=== PATIENT | female | born 1975 | race Caucasian/White ===

== ENCOUNTER → 2020-02-13 10:01 | Outpatient (CLI) | payer OTHER, SELFPAY ==
[2020-02-13 11:03] LABS: COVID19 -Nasal RAPID Negative (Negative)
== END ==
PROVIDERS: Family Provider Internal Medicine; PCP Internal Medicine; Referring Provider Internal Medicine; Visit Provider Internal Medicine
DX: Z20.822 Contact with and (suspected) exposure to COVID-19 (principal)
CPT/HCPCS: 87635; C9803

== ENCOUNTER → 2020-02-14 08:46 | Outpatient (CLI) | payer OTHER, SELFPAY ==
--- NOTE | 2020-02-22 10:52 | P.PFT.S_ITS ---
Pulmonary Function Test Referral & Results Date Patient Seen: 02/14/20 Requesting provider: Krys Harrington Indication: Asthma Results: The spirometry demonstrates an FVC of 3.78 L which is 85% of predicted. The FEV1 was measured at 2.98 L which is 83% of predicted. The FEV1/FVC ratio was 79 which is 96% of predicted. Following the administration of bronchodilator there was a 34% improvement in FEF 25-75%. Lung volumes show an SVC of 3.95 L which is 98% of predicted. The diffusing capacity was measured at 23.89 which is 73% of predicted. No hemoglobin value was provided, so no correction for potential anemia could be made, if appropriate. The maximum voluntary ventilation was normal Interpretation: This study demonstrates perhaps mild obstructive lung disease based on reduction FEV1 and shape a flow volume loop. There is evidence of very limited benefit following bronchodilator particularly small airway flow as above based on impr ovement in FEF 25-75% Lung volumes are normal, and diffusing capacity is borderline minimally reduced (unless patient is anemic). Clinical correlation suggested
== END ==
PROVIDERS: Family Provider Internal Medicine; Referring Provider Family Medicine; Visit Provider Family Medicine
DX: J45.20 Mild intermittent asthma, uncomplicated (principal); Z87.891 Personal history of nicotine dependence
CPT/HCPCS: 94060; 94726; 94729

== ENCOUNTER 2023-04-27 11:52 | Emergency (ER) | payer OTHER, SELFPAY ==
[2023-04-27] VITALS (10 sets, daily range): BP systolic 120–168; BP diastolic 77–88; PULSE 59–81; RESP 13–19; TEMP 36.6; O2SAT 97–99; BMI 27.9
--- NOTE | 2023-04-27 12:10 | DI.RAD.S_ITS ---
PROCEDURE: XR TIBIA FIBULA LT 2V INDICATIONS: injury TECHNIQUE: 2 views of the tibia and fibula were acquired. COMPARISON: None. FINDINGS: Bones: No fractures or dislocations. No suspicious bony lesions. Midfoot orthopedic hardware noted. Soft tissues: No suspicious soft tissue calcifications or masses. IMPRESSION: Unremarkable tibia and fibula films. Dictated by: Nahid Lara M.D. on 04/27/2023 at 13:15 Approved by: Nahid Lara M.D. on 04/27/2023 at 13:16
--- NOTE | 2023-04-27 12:10 | DI.US.S_ITS ---
PROCEDURE: US PERIPH VENOUS LOW EXTREM LT INDICATIONS: PAIN AND SWELLING TECHNIQUE: Real-time imaging, as well as color and pulse Doppler interrogation, were performed of the lower extremity deep veins from the inguinal ligament to the popliteal fossa, with documentation of the visualized calf veins. COMPARISON: None. FINDINGS: Intraluminal filling defects are noted in left popliteal vein and posterior tibial vein. Left peroneal veins are not well seen. Above-mentioned veins show all absence of flow and are noncompressible. IMPRESSION: Occlusive venous thrombosis in left popliteal vein and posterior tibial vein. Dictated by: Raman Mcfadden M.D. on 04/27/2023 at 13:14 Approved by: Raman Mcfadden M.D. on 04/27/2023 at 13:16
[2023-04-27 12:41] LABS: Bacteria Urine Moderate (10-30); Culture Indicated Urine Specimen Cultured; RBC Urine None Seen (0-5/HPF); Squamous Epithelial Cell Urine 1-5 /HPF (0-5/HPF); Urine Volume 10mL (spun); WBC Urine 0-1/HPF (0-5/HPF)
--- NOTE | 2023-04-27 12:41 | PC.NURSE ---
History of PE on eloquis
[2023-04-27 12:52] LABS: Add Manual Diff / Slide Review NO; Basophils Absolute Auto 100 /uL (0-100); Basophils Percent Auto 0.9 % (0-2); Eosinophils Absolute Auto 200 /uL (0-450); Eosinophils Percent Auto 3.2 % (2-4); Hematocrit 34.6 % (36-46); Hemoglobin 11.6 g/dL (12.0-16.0); Lymphocytes Absolute Auto 1800 /uL (1100-4500); Mean Corpuscular HGB Conc 33.4 % (30-36); Mean Corpuscular Hemoglobin 29.1 PG (26-34); Monocytes Absolute Auto 400 /uL (0-900); Neutrophils Absolute Auto 3400 /uL (1500-7000); Neutrophils Percent Auto 57.9 % (50-75); Platelet Count 300 X10^3/uL (150-400); Red Blood Cell Count 3.98 X10^6/uL (4.0-5.2); White Blood Cell Count 5.9 X10^3/uL (4.5-11.0)
[2023-04-27 12:54] LABS: INR 1.1 (0.9-1.3); Prothrombin Time 12.4 SECONDS (9.4-12.5)
[2023-04-27 12:58] LABS: Alanine Aminotransferase 16 IU/L (<35); Albumin 3.8 g/dL (3.5-5.0); Albumin Globulin Ratio 1.2 (1.0-2.8); Alkaline Phosphatase 86 U/L (38-126); Aspartate Aminotransferase 23 IU/L (14-36); BUN Creatinine Ratio 19.5 (6-22); Bilirubin Total 0.4 mg/dL (0.2-1.3); Blood Urea Nitrogen 15 mg/dL (7-17); Carbon Dioxide 27 mmol/L (22-32); Chloride 109 mmol/L (98-107); Estimated Glomerular Filt Rate > 60 mL/min (>60); Globulin 3.3 g/dL (1.7-4.1); Glucose 120 mg/dL (70-100); HEMOLYSIS < 15 (0-50); Potassium 3.9 mmol/L (3.4-5.1); Sodium 137 mmol/L (137-145); Total Protein 7.1 g/dL (6.3-8.2)
[2023-04-27 12:59] LABS: Lactate (Lactic Acid) 0.8 mmol/L (0.7-2.1)
[2023-04-27 13:03] LABS: D Dimer 2115 ng/ml (<500)
[2023-04-27 13:10] LABS: NT-proBNP (BNP-Adult 18+) 440 pg/mL (<125); Troponin I < 0.012 ng/mL (0.01-0.034)
--- NOTE | 2023-04-27 13:43 | ED.GENADULT ---
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 She is on Eliquis but notes that she does miss a few doses here and there. She fell about 3 weeks ago injured the left minaya with a small contusion to that area noticed increasing pain and then swelling to the left leg and comes in for further evaluation. She notes that she has been chronically dyspneic since her original pulmonary embolism but the last couple of days she has had increased exertional dyspnea. She had a low-grade headache this morning that responded well to Tylenol and ibuprofen. She has not had any palpitations, abdominal pain, diaphoresis, nausea or vomiting Related Data Home Medications Medication Instructions Recorded Confirmed apixaban 5 mg tablet (Eliquis) 2.5 mg PO BID 07/15/19 04/27/23 Previous Rx's Medication Instructions Recorded sumatriptan succinate 50 mg tablet 50 mg PO ONCE #10 tabs 07/15/19 apixaban 5 mg tablet (Eliquis) 5 mg PO BID #180 tabs 04/27/23 Allergies Allergy/AdvReac Type Severity Reaction Status Date / Time Amoxicillin Allergy Severe ANAPHYLAXIS Uncoded 04/27/23 12:05 Penicillin Allergy Severe ANAPHYLAXIS Uncoded 04/27/23 12:05 Aspirin Allergy Mild RASH & Uncoded 04/27/23 12:05 HIVES BEE,HONEY Allergy Unknown Uncoded 04/27/23 12:05 CAT DANDER Allergy Unknown Uncoded 04/27/23 12:05 CHESTNUT Allergy Unknown Uncoded 04/27/23 12:05 GRASS Allergy Unknown Uncoded 04/27/23 12:05 PISTACHIO Allergy Unknown Uncoded 04/27/23 12:05 Review of Systems Review of Systems Narrative: Pertinent positive and negative findings as per HPI Patient History Medical History (Updated 04/27/23 @ 14:33 by Belkis Akbar MD) Generalized anxiety disorder DVT, recurrent, lower extremity, acute Pulmonary embolism Fractures (2010) Fibroids (2004) Asthma (1986) Hayfever (1986) DVT (deep venous thrombosis) (2010) Surgical History (Updated 08/18/17 @ 12:32 by Kassidy Martínez) Anesthesia Status post bunionectomy (03/2014) Status post myomectomy (2006) Family History (Updated 08/18/17 @ 12:32 by Kassidy Martínez) Grandmother Cervical cancer Mental health problem Alzheimer's dementia Grandmother Stroke Social History Smoking Status: Former smoker Smoking Status: Former smoker alcohol intake frequency: other Substance Use Type: does not use Exam Initial Vital Signs Initial Vital Signs: Vital Signs Temperature 98 F 04/27/23 12:00 Pulse Rate 81 04/27/23 12:00 Respiratory Rate 18 04/27/23 12:00 Blood Pressure 168/86 H 04/27/23 12:00 Pulse Oximetry 97 04/27/23 12:00 Oxygen Delivery Method Room Air 04/27/23 12:00 General: Healthy appearing, in no acute distress. Able to give a complete and coherent history. Well-nourished well-developed HEENT: Moist mucous membranes, normal sclera with reactive pupils, Respiratory: Lungs are clear to auscultation, no wheezing no rales no rhonchi. Full and symmetrical air movement Cardiac: Regular rate and rhythm no murmurs no bruits Abdomen: Soft, nontender, good bowel tones, no flank pain Skin: Warm and dry, no rashes Neurologic: Grossly neurologically intact with no obvious asymmetries or abnormalities Extremities: She has an almost completely healed contusion to the left anterior minaya. Left calf is more swollen than the right calf with a positive Homans sign. She is neurovascularly intact. Psych: Cooperative, appropriate insight and affect Course Orders Ordered: ED Orders 04/27/23 12:10 US periph venous low extrem lt Stat XR tibia fibula LT 2V Stat 04/27/23 12:11 EKG-12 Lead Stat Measure peak expiratory flow ONCE RT Consult Eval and Treat NOW 04/27/23 12:20 Urine Culture Stat Urine Microscopic Stat 04/27/23 12:36 Complete Blood Count AUTO DIFF Stat Comprehensive Metabolic Panel Stat D Dimer Stat Lactate (Lactic Acid) Stat NT-proBNP (BNP-Adult 18+) Stat Prothrombin Time INR Stat Troponin I Stat Vital Signs Vital signs: Vital Signs - 8 hr 04/27/23 12:00 04/27/23 12:37 04/27/23 13:00 Temperature 98 F Pulse Rate 81 69 74 Respiratory Rate 18 Blood Pressure 168/86 H Pulse Oximetry 97 99 98 Oxygen Delivery Method Room Air 04/27/23 13:30 04/27/23 13:31 04/27/23 13:31 Temperature Pulse Rate 64 63 Respiratory Rate Blood Pressure 120/77 Pulse Oximetry 98 98 Oxygen Delivery Method Medical Decision Making Lab Data 04/27/23 12:36 04/27/23 12:36 Labs: Lab Results 04/27/23 04/27/23 Range/Units 12:20 12:36 WBC 5.9 (4.5-11.0) X10^3/uL RBC 3.98 L (4.0-5.2) X10^6/uL Hgb 11.6 L (12.0-16.0) g/dL Hct 34.6 L (36-46) % MCV 87.0 (80-100) fL MCH 29.1 (26-34) PG MCHC 33.4 (30-36) % RDW 16.0 H (11.6-14.8) % Plt Count 300 (150-400) X10^3/uL Neut % (Auto) 57.9 (50-75) % Lymph % (Auto) 31.0 (25-40) % [place] % (Auto) 7.0 (3-14) % Eos % (Auto) 3.2 (2-4) % Baso % (Auto) 0.9 (0-2) % Neut # (Auto) 3400 (3942-6381) /uL Lymph # (Auto) 1800 (6127-7817) /uL [place] # (Auto) 400 (0-900) /uL Eos # (Auto) 200 (0-450) /uL Baso # (Auto) 100 (0-100) /uL PT 12.4 (9.4-12.5) SECONDS INR 1.1 (0.9-1.3) D-Dimer 2115 H (<500) ng/ml Sodium 137 (137-145) mmol/L Potassium 3.9 (3.4-5.1) mmol/L Chloride 109 H (98-107) mmol/L Carbon Dioxide 27 (22-32) mmol/L BUN 15 (7-17) mg/dL Creatinine 0.77 (0.52-1.04) mg/dL Estimated GFR > 60 (>60) mL/min BUN/Creatinine Ratio 19.5 (6-22) Glucose 120 H (70-100) mg/dL Lactate 0.8 (0.7-2.1) mmol/L Calcium 9.0 (8.4-10.2) mg/dL Total Bilirubin 0.4 (0.2-1.3) mg/dL AST 23 (14-36) IU/L ALT 16 (<35) IU/L Alkaline Phosphatase 86 (38-126) U/L Troponin I < 0.012 (0.01-0.034) ng/mL NT-Pro-B Natriuret Pep 440 H (<125) pg/mL Total Protein 7.1 (6.3-8.2) g/dL Albumin 3.8 (3.5-5.0) g/dL Globulin 3.3 (1.7-4.1) g/dL Albumin/Globulin Ratio 1.2 (1.0-2.8) Urine RBC None seen (0-5/HPF) Urine WBC 0-1/hpf (0-5/HPF) Ur Squamous Epith Cells 1-5 /hpf (0-5/HPF) Urine Bacteria Moderate (10-30) H (None) Ur Culture Indicated? Specimen cultured Vol Urine Centrifuged 10ml (spun) Point of Care Testing Test Results Negative Urine Dip Bedside Urine Glucose Negative Bedside Urine Bilirubin - Negative Bedside Urine Ketone - Negative Urine Specific [place] 1.005 Bedside Urine Occult Blood + Bedside Urine pH 6.0 Bedside Urine Protein - Negative Bedside Urine Urobilinogen - Negative Bedside Urine Nitrite - Negative Bedside Urine Leukocytes +/- 15 Esterase Point of care testing: Point of Care Testing Test Results Negative Urine Dip Bedside Urine Glucose Negative Bedside Urine Bilirubin - Negative Bedside Urine Ketone - Negative Urine Specific [place] 1.005 Bedside Urine Occult Blood + Bedside Urine pH 6.0 Bedside Urine Protein - Negative Bedside Urine Urobilinogen - Negative Bedside Urine Nitrite - Negative Bedside Urine Leukocytes +/- 15 Esterase MDM Narrative Medical decision making narrative: CC: Leg pain, exertional dyspnea Complicating co-morbidities: Clotting disorder with prior DVT/PE, she is currently on Eliquis but not taking regularly Data collected from: patient Medical records reviewed: Most recent medical records for review from [facility] are from July of 2019. It does look like she gets the majority of her care at [facility]. Differential considered: Recurrent DVT, PE, secondary to known clotting disorder and not appropriately taking Eliquis versus failed Eliquis Exam documented above, pertinent findings include: Quite comfortable, she has not hypoxic nor tachypneic at rest. Left calf is somewhat more swollen with a almost resolved anterior minaya bruise from the original injury 3 weeks ago Lab Test results independently reviewed as above. Pertinent findings: CBC shows no leukocytosis. Mild anemia at 11.6 and 34.6. Appropriate platelets Chemistries are reassuring with normal renal function ProBNP is minimally elevated at 440 Urinalysis indicates bacteria but no white cells or red cells. Independently reviewed EKG: EKG is notable for sinus rhythm at a rate of 74, she does have a PAC, normal intervals, normal axis. No suggestion of right heart strain Imaging studies independently reviewed: Ultrasound shows DVT in the left popliteal and posterior tibial veins. No DVT above the knee Discussion: 48-year-old woman with known clotting disorder presents with new DVT. On further questioning she lost her primary team of physicians, she has been having very significant menometrorrhagia that is made worse by her Eliquis so she tends to not take it while she is menstruating. We did talk about the possibility of an ablation as solution to that knowing that she is heading into menopause years of bleeding may get worse. Talked about the importance of finding a primary care physician with whom she feels comfortable. Going to restart her Eliquis at 5 mg twice a day, that may be able to be decreased to 2.5 mg b.i.d. for prophylactic dosing after 3 months but we will need to be discussed with her primary care doctor. Knowing that she is not having severe symptomatic pulmonary embolism today and will be treated for pulmonary embolism with the Eliquis with shared decision-making we opted to not do a PE study today. Discussed pain medication, she declined any narcotic prescriptions I did stress to her that she should not be taking nonsteroidals with the anticoagulant. Multiple questions were answered, at this point she is stable and is safe for discharge Discharge Plan Departure Patient Disposition: Home Clinical Impression: Anemia, Menometrorrhagia DVT, recurrent, lower extremity, acute Qualifiers: Laterality: left Qualified Code(s): I82.402 - Acute embolism and thrombosis of unspecified deep veins of left lower extremity Instructions: DI for Deep Vein Thrombosis Activity Restrictions/Additional Instructions: Thank you for coming in today You do have a recurrent clot in your lower leg. The clot does not go above your knee. You do need to be on your Eliquis full-time. For at least 3 months you need to be at 5 mg twice a day. After 3 months you may be able to go back to prophylactic dosing at 2.5 mg twice a day but need to talk your primary doctor. You need a primary doctor. Please begin calling around, it is going to take a number of months to find an open space. It is okay to continue looking to find a doctor with whom you feel comfortable. Please restart iron, you are still anemic When you establish a primary care physician, you may want to consider discussing uterine ablation to reduce your menstrual bleeding and hopefully some of your cramping. For pain, unfortunately limited to Tylenol. Ibuprofen will make bleeding worse while on the Eliquis If you are having worsening symptoms particularly shortness of breath palpitations or new findings please return to the ER Prescriptions: New Eliquis 5 mg tablet 5 mg PO BID Qty: 180 3RF No Action Eliquis 5 mg tablet 2.5 mg PO BID sumatriptan succinate 50 mg tablet 50 mg PO ONCE Qty: 10 3RF Stand Alone Forms: Patient Portal/API
== END 2023-04-27 14:45 | disposition home or self-care (01) ==
PROVIDERS: Emergency Provider Emergency Medicine; Family Provider Internal Medicine
DX: I82.402 Acute embolism and thrombosis of unspecified deep veins of left lower extremity (principal); D64.9 Anemia, unspecified; N92.1 Excessive and frequent menstruation with irregular cycle; R06.00 Dyspnea, unspecified; R51.9 Headache, unspecified; Z79.01 Long term (current) use of anticoagulants
CPT/HCPCS: 36415; 73590; 80053; 81003; 81015; 81025; 83605; 83880; 84484; 85025; 85379; 85610; 87086; 93005; 93971; 99283; 99284

== ENCOUNTER → 2024-12-04 13:20 | Outpatient (CLI) | payer OTHER, SELFPAY ==
[2024-12-04 14:06] LABS: Add Manual Diff / Slide Review NO; Hematocrit 33.7 % (36-46); Hemoglobin 10.9 g/dL (12.0-16.0); Lymphocytes Absolute Auto 2500 /uL (1100-4500); Mean Corpuscular HGB Conc 32.4 % (30-36); Mean Corpuscular Hemoglobin 25.7 PG (26-34); Mean Corpuscular Volume 79.4 fL (80-100); Platelet Count 354 X10^3/uL (150-400)
[2024-12-04 14:45] LABS: HEMOLYSIS < 15 (0-50); Iron 49 ug/dL (37-170)
[2024-12-04 14:47] LABS: Alanine Aminotransferase 15 IU/L (<35); Albumin 4.2 g/dL (3.5-5.0); Albumin Globulin Ratio 1.4 (1.0-2.8); Alkaline Phosphatase 85 U/L (38-126); Blood Urea Nitrogen 12 mg/dL (7-17); Calcium 9.1 mg/dL (8.4-10.2); Carbon Dioxide 17 mmol/L (22-32); Chloride 106 mmol/L (98-107); Cholesterol 168 mg/dL (140-199); Estimated Glomerular Filt Rate > 60 mL/min (>60); Globulin 2.9 g/dL (1.7-4.1); Glucose 92 mg/dL (70-99); HDL Cholesterol 102 mg/dL (40-60); HEMOLYSIS < 15 (0-50); Potassium 4.3 mmol/L (3.4-5.1); Sodium 132 mmol/L (137-145); Total Protein 7.1 g/dL (6.3-8.2); Triglycerides 102 mg/dL (35-150)
[2024-12-04 14:55] LABS: Percent Iron Saturation 10 % (15-50); Total Iron Binding Capacity 474 ug/dL (265-497); Transferrin 429 mg/dL (206-381)
[2024-12-04 15:18] LABS: Thyroid Stimulating Hormone 1.24 uIU/mL (0.47-4.68)
[2024-12-04 15:23] LABS: Ferritin 7 ng/mL (6-137)
== END ==
PROVIDERS: PCP Student in an Organized Health Care Education/Training Program; Referring Provider Student in an Organized Health Care Education/Training Program; Visit Provider Student in an Organized Health Care Education/Training Program
DX: N92.0 Excessive and frequent menstruation with regular cycle (principal)
CPT/HCPCS: 36415; 80053; 80061; 82728; 83540; 83550; 84443; 85025

== ENCOUNTER → 2025-01-27 16:22 | Outpatient (CLI) | payer OTHER, SELFPAY ==
--- NOTE | 2025-01-27 16:23 | DI.US.S_ITS ---
PROCEDURE: US PELVIC COMPLETE INDICATIONS: heavy menstural bleeding TECHNIQUE: Real-time scanning was performed of the pelvic organs, with image documentation. Additional endovaginal scanning was necessary due to incomplete visualization of the adnexal and endometrial structures by transabdominal scanning. COMPARISON: None. FINDINGS: Uterus: Uterus is retroverted and increased in size at 12.0 x 6.1 x 8.9 cm. The myometrium is heterogeneous. The endometrium measures 9.0 mm combined thickness. Mid anterior intramural fibroid measuring 2.3 x 2.3 x 3.4 cm. Mid anterior intramural fibroid measuring 1.9 x 2.2 x 2.9 cm. Mid intramural fibroid measuring 5.9 x 3.8 x 5.4 cm. Ovaries: The right ovary measures 1.4 x 1.5 x 2.9 cm, with a calculated ovarian volume of 3.1 cc. The left ovary measures 4.9 x 2.8 x 2.6 cm, with a calculated ovarian volume of 18.4 cc. Left ovarian simple cyst measuring 2.0 cm. The ovaries have a normal sonographic appearance. Less than 12 follicles can be seen in each ovary. No adnexal masses are seen. Other: No pathologic free abdominal or pelvic fluid. IMPRESSION: Endometrium measures 9 mm which is normal for premenopausal female but considered thickened for a postmenopausal female, recommend clinical correlation. Uterine fibroids measuring up to 5.9 cm. Left ovarian simple cyst measuring 2.0 cm. Ovaries are otherwise normal in appearance. We strive to produce accurate, complete, and clear reports of imaging services. To assist us in improving patient care, this report was composed using standard report templates and voice recognition software. Therefore, it may contain abnormal punctuation, insertions and/or omissions. Occasional wrong-word or sound-alike substitutions may occur. Though we review the report and make efforts to correct it, we do recommend that the report be read carefully in proper context to recognize any text inaccuracies. Dictated by: Claude Markham M.D. on 01/28/2025 at 8:38 Approved by: Claude Markham M.D. on 01/28/2025 at 8:40
== END ==
LOC: US 16:23
PROVIDERS: PCP Student in an Organized Health Care Education/Training Program; Referring Provider Student in an Organized Health Care Education/Training Program; Visit Provider Student in an Organized Health Care Education/Training Program
DX: N92.0 Excessive and frequent menstruation with regular cycle (principal); D25.1 Intramural leiomyoma of uterus; N83.292 Other ovarian cyst, left side
CPT/HCPCS: 76830; 76856